=== PATIENT | female | born 1950 ===

== ENCOUNTER → 2025-01-17 07:14 | Outpatient (CLI) | payer OTHER ==
[~2025-01-17 07:14] MED LIST: CARDIZEM30 MG PO; COZAAR25 MG PO; SINGULAIR10 MG PO; SYNTHROID50 MCG PO; ZETIA10 MG PO
[2025-01-17 08:00] LABS: HEMOGLOBIN 12.9 g/dL (12.0-15.00); MEAN CELL VOLUME 96.5 fL (80.00-100.00); MEAN CORPUSCULAR HEMOGLOBIN 31.9 pg (27.00-32.0); MEAN CORPUSCULAR HGB CONC 33.1 g/dl (32.0-36.0); PLATELET COUNT 194 K/uL (150-450); RED BLOOD COUNT 4.04 M/uL (4.00-6.00); RED CELL DISTRIBUTION WIDTH 14.7 % (11.5-14.5)
[2025-01-17 08:04] LABS: URINE APPEARANCE Clear; URINE BILIRRUBIN Negative (NEGATIVE); URINE BLOOD Negative; URINE COLOR Yellow; URINE GLUCOSE Negative (NEGATIVE); URINE KETONE Negative (NEGATIVE); URINE LEUKOCYTE Moderate; URINE NITRATE Negative; URINE PROTEIN Negative (NEGATIVE); URINE UROBILINOGEN 0.2 E.U./dl
[2025-01-17 08:07] LABS: URINE BACTERIA 138.2 uL (0.0-1933); URINE EPITHELIAL CELLS 29.2 uL (0.0-38.8); URINE WBC 30.5 uL (0.0-23.2)
[2025-01-17 08:20] LABS: URINE CAST 0.29 uL (0.0-1.40); URINE RBC 1.3 uL (0.0-20.8)
[2025-01-17 08:28] LABS: INR 1.02; PARTIAL THROMBOPLASTIN TIME 27.5 SECONDS (22.0-34.0); PROTHROMBIN TIME 11.1 SECONDS (9.0-11.5)
[2025-01-17 09:12] LABS: ALBUMIN 3.7 gm/dL (3.4-5.0); BILIRUBIN TOTAL 0.49 mg/dL (0.3-1.2); CALCIUM 9.5 mg/dL (8.5-10.1); CREATININE SERUM 0.67 mg/dL (0.55-1.02); GFR 85.57; GLOBULINA 3.4 G/DL (2.4-3.5); POTASSIUM 4.05 mEq/L (3.5-5.1); TOTAL PROTEIN 7.1 gm/dL (6.4-8.2)
== END | disposition home or self-care (01) ==
LOC: LAB 07:14
PROVIDERS: ATTEND Obstetrics & Gynecology Gynecology
DX: Z01.812 Encounter for preprocedural laboratory examination (principal); Z01.818 Encounter for other preprocedural examination; D50.8 Other iron deficiency anemias; R73.03 Prediabetes; N39.0 Urinary tract infection, site not specified; D68.8 Other specified coagulation defects; R07.89 Other chest pain; Z01.810 Encounter for preprocedural cardiovascular examination; I10 Essential (primary) hypertension

== ENCOUNTER 2025-01-31 05:05 | Day surgery (SDC) | payer OTHER ==
[2025-01-31] MEDS ORDERED: CEFAZOLIN SODIUM 1,000 MG VIAL ONE (07:45)
[2025-01-31] MEDS ORDERED: GENTAMICIN SULFATE 40 MG/ML VIAL ONE (09:05)
[2025-01-31] MEDS ORDERED: LIDOCAINE HCL 1%/EPINEPHRINE 20ML VIAL IJ ONE (09:05)
[2025-01-31] MEDS ORDERED: MACROBID 100 M100 MG PO (10:48)
[2025-01-31] MEDS ORDERED: TRAM1TAB98 PO (10:50)
== END 2025-01-31 13:55 | disposition home or self-care (01) ==
LOC: CIR.AMB 05:05
PROVIDERS: ATTEND Obstetrics & Gynecology Gynecology
DX: N81.6 Rectocele (principal); N81.5 Vaginal enterocele; N81.11 Cystocele, midline